=== PATIENT | female | born 1990 | race Caucasian/White ===

== ENCOUNTER 2017-05-01 12:00 | Outpatient (CLI) | payer BC, MEDICAID, SELFPAY ==
[2017-05-01 12:21] VITALS: BMI 37.6
[2017-05-01 12:50] LABS: ROM Internal Control Test YES-OK TO RESULT pt. (Internal QC); ROM Patient Test Negative (Negative)
--- NOTE | 2017-05-02 11:56 | OB.TRI.NOTE ---
History of Present Illness Date of Service: 05/01/17 Was patient seen by the physician?: No Reason For Visit: SROM Date of Service: 05/01/17 Final DIANNE: 05/15/17 Final DIANNE Source: US <20 weeks Gestational age: 38 Weeks and 1 Days History of Present Illness: 38+ week intrauterine presents with possible rupture of membranes. Home Medications Medication Instructions Recorded Citalopram [Celexa] 40 mg PO DAILY 04/11/17 Ferrous Sulfate 325 mg PO DAILY 04/11/17 Levothyroxine [Synthroid] 1.5 tab PO SUMOWEFR 04/11/17 Levothyroxine [Synthroid] 125 mcg PO TUTHSA 04/11/17 Allergies No Known Allergies Allergy (Verified 04/14/17 03:58) NST - FHR Rate Baby A NST Reactive:: Yes Impression/Plan 38+ week intrauterine presents with possible rupture of membranes. ROM plus test was negative. No contractions were noted and nonstress test was reactive. Will release to home with routine instructions.
== END 2017-05-01 13:00 | disposition home or self-care (01) ==
LOC: WPOUT 12:17 → WP 12:21
PROVIDERS: Visit Provider Obstetrics & Gynecology
DX: Z34.83 Encounter for supervision of other normal pregnancy, third trimester (principal); Z3A.00 Weeks of gestation of pregnancy not specified
CPT/HCPCS: 59025; 59050; 84112; 99218; G0378

== ENCOUNTER 2017-05-03 22:40 | Outpatient (CLI) | payer BC, MEDICAID, SELFPAY ==
[2017-05-03 23:05] VITALS: BMI 37.9
--- NOTE | 2017-05-05 09:17 | OB.TRI.NOTE ---
History of Present Illness Date of Service: 05/01/17 Was patient seen by the physician?: No Reason For Visit: DFM Date of Service: 05/01/17 Final DIANNE: 05/15/17 Final DIANNE Source: US <20 weeks Gestational age: 38 Weeks and 4 Days Home Medications Medication Instructions Recorded Citalopram [Celexa] 40 mg PO DAILY 04/11/17 Ferrous Sulfate 325 mg PO DAILY 04/11/17 Levothyroxine [Synthroid] 1.5 tab PO SUMOWEFR 04/11/17 Levothyroxine [Synthroid] 125 mcg PO TUTHSA 04/11/17 Allergies No Known Allergies Allergy (Verified 05/03/17 23:06) - Pertinent Past Medical History Pertinent Past Medical History: 38+ week intrauterine presents with decrease in movement. This despite interventions at home. She denies any contractions. Denies leaking of fluid or vaginal bleeding. NST - FHR Rate Baby A NST Reactive:: Yes Impression/Plan 38+ week intrauterine with decreased movement. Nonstress test was reactive. Will release to home with routine follow-up.
== END 2017-05-04 00:30 | disposition home or self-care (01) ==
LOC: WPOUT 22:45 → WP 22:48
PROVIDERS: Visit Provider Obstetrics & Gynecology
DX: O36.8130 Decreased fetal movements, third trimester, not applicable or unspecified (principal); Z3A.38 38 weeks gestation of pregnancy
CPT/HCPCS: 59025; 59050; 99218; G0378

== ENCOUNTER 2017-05-11 09:20 | Inpatient (IN) | payer BC, MEDICAID, SELFPAY ==
[2017-05-06 13:21] VITALS: BMI 38.1
[2017-05-11] VITALS (16 sets, daily range): BP systolic 103–134; BP diastolic 63–88; PULSE 68–102; RESP 12–20; TEMP 36.2–36.8; O2SAT 96–99
[2017-05-11 10:49] LABS: Absolute Lymphocyte Count 1.54 X10^3/ul (0.83-4.51); Absolute Neutrophil Count 6.9 X10^3/uL (2.0-7.7); Basophil# 0.02 X10^3/uL; Basophil% 0.2 % (0-1); Eosinophil# 0.14 X10^3/uL; Eosinophils% 1.5 % (0-5); Hematocrit 33.6 % (37-47); Lymphocyte # 1.54 X10^3/ul (4.0); Lymphocyte % 16.4 % (19-41); Mean Corp Hgb Conc 32.7 g/gl (32-36); Mean Corpuscular Hgb 30.1 pg (27.0-32.0); Mean Corpuscular Volume 91.8 fL (81-99); Mean Platelet Vol. 9.9 fl (6.2-12.0); Monocyte# 0.74 X10^3/uL; Monocyte% 7.9 % (0-10); Neutrophil # 6.88 X10^3/uL (2.7-7.7); Neutrophil % 73.3 % (47-70); Platelet Count 176 K/mm3 (150-450); RBC Distribution Width CV 13.6 % (11.6-14.6); RBC Distribution Width SD 43.2 fl (35.1-43.9); Red Blood Count 3.66 M/mm3 (4.2-5.4); White Blood Count 9.4 K/mm3 (4.4-11.0)
[2017-05-11 10:51] LABS: POSITIVE COUNT NO; POSITIVE DIFFERENTIAL NO; POSITIVE MORPHOLOGY NO
[2017-05-11] MEDS: Lactated Ringers 1,000 ML 999 ML IV (11:01)
[2017-05-11 11:07] LABS: Prothrombin Time (Protime)PT. 13.2 SECONDS (11.7-14.9)
[2017-05-11 11:08] LABS: Partial Thromboplast Time 28.1 Seconds (24.1-36.2)
[2017-05-11] MEDS: Lactated Ringers 1,000 ML 150 ML IV (11:32)
[2017-05-11] MEDS: Sodium Citrate/Citric Acid 30 ML UDC PO (11:53)
[2017-05-11] MEDS: Cefazolin 2 GM in 0.9% Normal Saline 100 ML IV (12:01)
[2017-05-11] MEDS: Oxytocin 30 units/NS 500 ml 30 UNITS/500 ML IV.SOLN 167 UNITS IV (12:23)
[2017-05-11] MEDS: Lactated Ringers 1,000 ML 100 ML IV (13:05)
[2017-05-11] MEDS: DiphenhydrAMINE 25 MG Capsule PO (16:09)
[2017-05-11] MEDS: Ketorolac 30 MG/ML Syringe IV (18:06)
--- NOTE | 2017-05-11 19:09 | PCM.OP.BLANK ---
Operative Report Date of Procedure: 05/11/17 PROCEDURE: Repeat C section 39 wk EGA Bilateral tubal occlusion, Filshie clips Preoperative diagnosis: 39 wk EGA prior C/S Planned repeat C section Sterilization request Postop diagnosis: 39 wk EGA prior C/S Planned repeat C section Sterilization request Anesthesia: Spinal per Tavares Mccoy CRNA Surgeon: Jolene Juárez MD Draughtsman: MEHRAN Sutton EBL 800 cc Complications: none Drains: Power draining clear yellow urine Fluids: replacement LR Findings: At amniotomy, clear fluid was noted. Abraham viable male in vertex presentation. Apgars 7/8, Baby weight: 8# 9 oz. Cord around the neck reduced at delivery. There was a normal appearing uterus, fallopian tubes and ovaries bilaterally. Adhesions noted at anterior lower uterine segment . Adhesions noted at R fallopian tube, with small segment of fallopian tube free of adhesions and varicose veins also noted. BPS not performed, in favor of Filshie clip BTO instead. PATH: Cord gases. Narrative account: After the risks, benefits and alternatives of the procedure were reviewed with the patient, informed consent was obtained. The patient was taken to the Operating room with an IV running. She was placed in a seated position on the operating room table and a Spinal was administered. The patient was the repositioned to the dorsal supine position with leftward displacement of the uterus , briefly frog-legged for placement of the Power catheter under sterile technique, and then repositioned again to dorsal supine position with leftward displacement of the uterus, and prepped and draped in the usual sterile fashion. Once the spinal was deemed adequate, a Pfannenstiel skin incision was created using the knife . The incision was carried down to the rectus fascia using the knife. The fascia was nicked in the midline. The fascial incision was extended bilaterally using curved Ferraro scissors. The superior aspect of the fascial incision was grasped with Scott clamps and tented up and the underlying rectus abdominal muscles were dissected free. In a similar manner, the inferior aspect of the facial incision was grasped with Scott clamps tented up and the underlying rectus abdominal muscles were dissected free. The rectus abdominis muscles were widely . The rectus abdominis muscles were tented up in the midline with camron clamps and the peritoneum was identified and entered by sharp dissection. The operators fingertips were then used to help develop the midline dissection of the rectus muscles and peritoneum. The rectus abdominis muscles and peritoneal incision was then extended inferiorly and superiorly using Ferarro scissors. Blunt dissection with the bush hog operator's fingertips was also used to take down the filmy adhesions between the peritoneum and anterior lower uterine segment. The peritoneum was stretched laterally and a bladder blade was inserted. A bladder flap was created with Metzenbaum scissors and the bladder blade was removed and reinserted. The uterine incision was then created using Metzenbaum scissors. The uterine incision was extended by blunt dissection in a caudad- cephalad orientation using the bush hog operator's fingertips. Clear fluid was noted at amniotomy. The Vertex was then delivered and a nuchal cord x one was noted and reduced and the shoulders delivered. The OP and nares were bulb suctioned on the abdomen. The cord was clamped x two and cut and the baby was shown briefly to his parents and then passed off to the nurse awaiting delivery. The baby had good tone but was not crying vigorously. The umbilical cord was doubly clamped. The placenta was then delivered and set aside for later collection of cord blood gases. The uterus was exteriorized and cleared of clots and debris . The cervix was dilated with a ring forceps which was then passed off the field. The uterine incision was repaired with 1 Vicryl in a running locked fashion. The fallopian tubes were then inspected. The R fallopian tube was adherent to the R ovary and a small portion only of fallopian tube was free and accessible for BTO vs BPS. Due to this finding, I advised BTO with Filshie clips and advised Judith of this. The R fallopian tube was tented up at the small portion not involved in adhesions and the Filshie clip was firmly applied. Good blanching effect was noted. The L fallopian tube was then tented up at a relatively avascular portion and a Filshie clip was firmly applied. Good blanching effect was noted. The uterus, fallopian tubes and ovaries were then inspected and returned to the abdominal cavity. The gutters were cleared of clots and debris. The uterine incision and fallopian tubes were again inspected. There was minimal bleeding noted along the incision. Several horizontal mattress stitches of 1 Vicryl were placed and excellent hemostasis was then noted. The rectus abdominis and peritoneal edges were reapproximated in the midline with interrupted vertical mattress stitches of 1 Vicryl . Excellent hemostasis was noted at the subfascial space The fascia was closed in a running nonlocked fashion with 1 Vicryl. The Subcutaneous fatty tissue was Bovie cauterized as needed for hemostasis. This layer was then reapproximated with a nonlocked running 3-0 Vicryl. The skin edges were closed in a Subcuticular stitch of 4-0 Monocryl. The incision was cleansed. Seri-strips, and a sterile dressing were applied. The patient was then transferred to the recovery room bed in stable condition after tolerating the procedure well. Sponge, lap, needle and instrument counts correct times two. Medications given preop and intraoperatively included: Ancef two grams IV was given general hardware salesperson to the operating room. The patient also received Pitocin given IV after cord clamp, and Toradol 30 mg IV after cord clamp. For a complete listing of medications given preop and intraoperatively, please see the anesthesia record.
--- NOTE | 2017-05-11 19:22 | OP.PCM_ITS ---
Operative Report Date of Procedure: 05/11/17 PROCEDURE: Repeat C section 39 wk EGA Bilateral tubal occlusion, Filshie clips Preoperative diagnosis: 39 wk EGA prior C/S Planned repeat C section Sterilization request Postop diagnosis: 39 wk EGA prior C/S Planned repeat C section Sterilization request Anesthesia: Spinal per Tavares Mccoy CRNA Surgeon: Jolene Juárez MD Police Shift Commander: MEHRAN Sutton EBL 800 cc Complications: none Drains: Power draining clear yellow urine Fluids: replacement LR Findings: At amniotomy, clear fluid was noted. Abraham viable male in vertex presentation. Apgars 7/8, Baby weight: 8# 9 oz. Cord around the neck reduced at delivery. There was a normal appearing uterus, fallopian tubes and ovaries bilaterally. Adhesions noted at anterior lower uterine segment . Adhesions noted at R fallopian tube, with small segment of fallopian tube free of adhesions and varicose veins also noted. BPS not performed, in favor of Filshie clip BTO instead. PATH: Cord gases. Narrative account: After the risks, benefits and alternatives of the procedure were reviewed with the patient, informed consent was obtained. The patient was taken to the Operating room with an IV running. She was placed in a seated position on the operating room table and a Spinal was administered. The patient was the repositioned to the dorsal supine position with leftward displacement of the uterus , briefly frog-legged for placement of the Power catheter under sterile technique, and then repositioned again to dorsal supine position with leftward displacement of the uterus, and prepped and draped in the usual sterile fashion. Once the spinal was deemed adequate, a Pfannenstiel skin incision was created using the knife . The incision was carried down to the rectus fascia using the knife. The fascia was nicked in the midline. The fascial incision was extended bilaterally using curved Ferraro scissors. The superior aspect of the fascial incision was grasped with Scott clamps and tented up and the underlying rectus abdominal muscles were dissected free. In a similar manner, the inferior aspect of the facial incision was grasped with Scott clamps tented up and the underlying rectus abdominal muscles were dissected free. The rectus abdominis muscles were widely . The rectus abdominis muscles were tented up in the midline with camron clamps and the peritoneum was identified and entered by sharp dissection. The operators fingertips were then used to help develop the midline dissection of the rectus muscles and peritoneum. The rectus abdominis muscles and peritoneal incision was then extended inferiorly and superiorly using Ferraro scissors. Blunt dissection with the wire photo operator news's fingertips was also used to take down the filmy adhesions between the peritoneum and anterior lower uterine segment. The peritoneum was stretched laterally and a bladder blade was inserted. A bladder flap was created with Metzenbaum scissors and the bladder blade was removed and reinserted. The uterine incision was then created using Metzenbaum scissors. The uterine incision was extended by blunt dissection in a caudad- cephalad orientation using the wire photo operator news's fingertips. Clear fluid was noted at amniotomy. The Vertex was then delivered and a nuchal cord x one was noted and reduced and the shoulders delivered. The OP and nares were bulb suctioned on the abdomen. The cord was clamped x two and cut and the baby was shown briefly to his parents and then passed off to the nurse awaiting delivery. The baby had good tone but was not crying vigorously. The umbilical cord was doubly clamped. The placenta was then delivered and set aside for later collection of cord blood gases. The uterus was exteriorized and cleared of clots and debris . The cervix was dilated with a ring forceps which was then passed off the field. The uterine incision was repaired with 1 Vicryl in a running locked fashion. The fallopian tubes were then inspected. The R fallopian tube was adherent to the R ovary and a small portion only of fallopian tube was free and accessible for BTO vs BPS. Due to this finding, I advised BTO with Filshie clips and advised Judith of this. The R fallopian tube was tented up at the small portion not involved in adhesions and the Filshie clip was firmly applied. Good blanching effect was noted. The L fallopian tube was then tented up at a relatively avascular portion and a Filshie clip was firmly applied. Good blanching effect was noted. The uterus, fallopian tubes and ovaries were then inspected and returned to the abdominal cavity. The gutters were cleared of clots and debris. The uterine incision and fallopian tubes were again inspected. There was minimal bleeding noted along the incision. Several horizontal mattress stitches of 1 Vicryl were placed and excellent hemostasis was then noted. The rectus abdominis and peritoneal edges were reapproximated in the midline with interrupted vertical mattress stitches of 1 Vicryl . Excellent hemostasis was noted at the subfascial space The fascia was closed in a running nonlocked fashion with 1 Vicryl. The Subcutaneous fatty tissue was Bovie cauterized as needed for hemostasis. This layer was then reapproximated with a nonlocked running 3-0 Vicryl. The skin edges were closed in a Subcuticular stitch of 4-0 Monocryl. The incision was cleansed. Seri-strips , and a sterile dressing were applied. The patient was then transferred to the recovery room bed in stable condition after tolerating the procedure well. Sponge, lap, needle and instrument counts correct times two. Medications given preop and intraoperatively included: Ancef two grams IV was given astronomy teacher to the operating room. The patient also received Pitocin given IV after cord clamp, and Toradol 30 mg IV after cord clamp. For a complete listing of medications given preop and intraoperatively, please see the anesthesia record.
[2017-05-11] MEDS: Lactated Ringers 500 ML IV (21:57)
[2017-05-12] VITALS (10 sets, daily range): BP systolic 101–126; BP diastolic 62–79; PULSE 78–104; RESP 16–18; TEMP 36.6–37.3; O2SAT 98–100
[2017-05-12] MEDS: Ketorolac 30 MG/ML Syringe IV ×2 (00:03→06:00)
[2017-05-12] MEDS: Lactated Ringers 1,000 ML 100 ML IV (03:35)
[2017-05-12 04:59] LABS: Hemoglobin 9.5 g/dl (12.0-15.0); Mean Corp Hgb Conc 32.8 g/gl (32-36); Mean Corpuscular Hgb 30.2 pg (27.0-32.0); Mean Corpuscular Volume 92.1 fL (81-99); Mean Platelet Vol. 9.6 fl (6.2-12.0); Platelet Count 136 K/mm3 (150-450); RBC Distribution Width CV 13.6 % (11.6-14.6); RBC Distribution Width SD 44.7 fl (35.1-43.9); Red Blood Count 3.15 M/mm3 (4.2-5.4); White Blood Count 9.4 K/mm3 (4.4-11.0)
[2017-05-12 05:03] LABS: Scan Indicated on CBC? Y/N NO
--- NOTE | 2017-05-12 05:23 | PCM.DCCSEC ---
Discharge Diet: No Restrictions Discharge Activity: May not drive while taking narcotic pain medications., May Shower, May Take a Tub Bath May resume sexual activity in: 4-6 weeks Lifting Restrictions: 20 pounds Additional Activity Instructions:: Nothing in the vagina for 4-6 weeks. You may return to work/school in 6 weeks. Change Dressing in (Days):: 14 Remove Dressing in (days):: 14 Cleanse incision/area with: Soap & Water, Keep Dressing Clean & Dry Additional Instructions: If you experience any of the following, contact your healthcare provider. Bleeding that soaks a pad every hour for 2 hours Fever 100.4 or higher Unrelieved incision or abdominal pain Swelling, redness, discharge or bleeding from your incision Problems urinating (including inability to urinate or burning while urinating). Visual changes Severe headache Flu-like symptoms Pain or redness in one of both of your breasts Pain, warmth, tenderness or swelling in your legs, especially the calf area Frequent nausea and vomiting Symptoms of depression or anxiety If you experience any of the following, call 911 or go to the nearest Emergency Room. Chest pain Problems breathing Seizure activity Partial or complete paralysis of a body part, slurred speech, weakness or drooping of the face, or a sudden inability to walk or hold your balance Allergies/Adverse Reactions: Allergies No Known Allergies Allergy (Verified 05/11/17 10:47) Medications to take at Discharge Citalopram [Celexa] 40 mg PO DAILY 04/11/17 Levothyroxine [Synthroid] 1.5 tab PO SUMOWEFR 04/11/17 Levothyroxine [Synthroid] 125 mcg PO TUTHSA 04/11/17 Acetaminophen [Tylenol] 1,000 mg PO Q8H PRN tablet 05/12/17 Ferrous Sulfate 325 mg PO BIDCM tablet 05/12/17 Naproxen [Naprosyn] 250 - 500 mg PO Q8H PRN PRN #30 tab 05/12/17 Oxycodone [Oxyir] 5 - 10 mg PO Q6H PRN PRN 7 Days #28 tablet 05/12/17 Senna/Docusate Sodium [Senokot-S] 1 tab PO BID PRN #30 tab 05/12/17 The following prescriptions were given: Oxycodone [Oxyir] 5 - 10 mg PO Q6H PRN PRN 7 Days #28 tablet PRN Reason: Mod-Severe Pain (4-10) Naproxen [Naprosyn] 250 - 500 mg PO Q8H PRN PRN #30 tab PRN Reason: Mild Pain (1-3) Senna/Docusate Sodium [Senokot-S] 1 tab PO BID PRN #30 tab PRN Reason: Constipation Orders to be completed after discharge: Electric breast pump Time Frame: 1 Year, Location: None Selected Follow-Up: Call to make an appointment with your doctor for an incision check in 1-2 weeks. You will also need a 6 week post- follow up appointment. Please Follow Up With: Jolene Juárez MD - [phone] When: Call to make an appointment for an incision check in 2 weeks. Primary Care Physician: Care Physician,No Primary [Primary Care Provider] -
--- NOTE | 2017-05-12 05:30 | DCINST_ITS ---
Discharge Diet: No Restrictions Discharge Activity: May not drive while taking narcotic pain medications., May Shower, May Take a Tub Bath May resume sexual activity in: 4-6 weeks Lifting Restrictions: 20 pounds Additional Activity Instructions:: Nothing in the vagina for 4-6 weeks. You may return to work/school in 6 weeks. Change Dressing in (Days):: 14 Remove Dressing in (days):: 14 Cleanse incision/area with: Soap & Water, Keep Dressing Clean & Dry Additional Instructions: If you experience any of the following, contact your healthcare provider. * Bleeding that soaks a pad every hour for 2 hours * Fever 100.4 or higher * Unrelieved incision or abdominal pain * Swelling, redness, discharge or bleeding from your incision * Problems urinating (including inability to urinate or burning while urinating) . * Visual changes * Severe headache * Flu-like symptoms * Pain or redness in one of both of your breasts * Pain, warmth, tenderness or swelling in your legs, especially the calf area * Frequent nausea and vomiting * Symptoms of depression or anxiety If you experience any of the following, call 911 or go to the nearest Emergency Room. * Chest pain * Problems breathing * Seizure activity * Partial or complete paralysis of a body part, slurred speech, weakness or drooping of the face, or a sudden inability to walk or hold your balance Allergies/Adverse Reactions: Allergies No Known Allergies Allergy (Verified 05/11/17 10:47) Medications to take at Discharge Citalopram [Celexa] 40 mg PO DAILY 04/11/17 Levothyroxine [Synthroid] 1.5 tab PO SUMOWEFR 04/11/17 Levothyroxine [Synthroid] 125 mcg PO TUTHSA 04/11/17 Acetaminophen [Tylenol] 1,000 mg PO Q8H PRN tablet 05/12/17 Ferrous Sulfate 325 mg PO BIDCM tablet 05/12/17 Naproxen [Naprosyn] 250 - 500 mg PO Q8H PRN PRN #30 tab 05/12/17 Oxycodone [Oxyir] 5 - 10 mg PO Q6H PRN PRN 7 Days #28 tablet 05/12/17 Senna/Docusate Sodium [Senokot-S] 1 tab PO BID PRN #30 tab 05/12/17 The following prescriptions were given: Oxycodone [Oxyir] 5 - 10 mg PO Q6H PRN PRN 7 Days #28 tablet PRN Reason: Mod-Severe Pain (4-12/29) Naproxen [Naprosyn] 250 - 500 mg PO Q8H PRN PRN #30 tab PRN Reason: Mild Pain (1-3) Senna/Docusate Sodium [Senokot-S] 1 tab PO BID PRN #30 tab PRN Reason: Constipation Orders to be completed after discharge: Electric breast pump Time Frame: 1 Year, Location: None Selected Follow-Up: Call to make an appointment with your doctor for an incision check in 1-2 weeks. You will also need a 6 week post- follow up appointment. Please Follow Up With: Jolene Juárez MD - [phone] When: Call to make an appointment for an incision check in 2 weeks. Primary Care Physician: Care Physician,No Primary [Primary Care Provider] -
[2017-05-12] MEDS: Levothyroxine 125 MCG Tablet 187.5 MCG PO (05:59)
--- NOTE | 2017-05-12 06:51 | PN.OBGYN_ITS ---
Subjective: POD#1 repeat C/S and BTO Doing OK. Up and to bathroom , would like to get the lucio out RAJAT. States itching all over. Offered med for this and not sure she wants it as threw up after med given yesterday (per RN: vomited after drinking entire pitcher of water and benadryl given) Pain control adequate. would like a shower. Planning to breast and bottle feed. Was going to only bottle feed, but baby is nursing very well. Objective: walking around in room with IV pole and Lucio bag in hand. - Physical Exam General: Alert, Oriented x3, Cooperative, No apparent distress HEENT: Atraumatic Neck: Supple Abdomen: Soft - Fundus firm NT at approx 2 cm inferior to umbilicus Skin: Incision - Dressing appears CDI. Neurological: Cranial nerves II-XII grossly intact Psych/Mental Status: Normal Affect Vital Signs Temp Pulse Resp BP Pulse Ox 98.7 F 87 18 101/62 98 05/12/17 03:36 05/12/17 03:36 05/12/17 05:30 05/12/17 03:36 05/12/17 05:30 Oxygen Delivery Method Room Air Weight: 103.9 kg Body Mass Index (BMI) 38.1 Intake and Output for Last 24 Hours 05/10/17 05/11/17 05/12/17 23:59 23:59 23:59 Intake Total 3296 / 3296 Output Total 1588 / 1588 Balance 1708 / 1708 Laboratory Tests Past 24 Hrs 05/11/17 05/11/17 05/11/17 10:20 10:20 10:20 WBC 9.4 RBC 3.66 L Hgb 11.0 L Hct 33.6 L MCV 91.8 MCH 30.1 MCHC 32.7 RDW 13.6 RDW Differential 43.2 Plt Count 176 MPV 9.9 Immature Gran % (Auto) 0.700 Neut % (Auto) 73.3 H Lymph % (Auto) 16.4 L Denali % (Auto) 7.9 Eos % (Auto) 1.5 Baso % (Auto) 0.2 Absolute Neuts (auto) 6.9 Absolute Lymphs (auto) 1.54 Total Counted Not Reportable PT 13.2 INR 1.0 APTT 28.1 Blood Type A POSITIVE Antibody Screen NEGATIVE 05/12/17 04:30 WBC 9.4 RBC 3.15 L Hgb 9.5 L Hct 29.0 L MCV 92.1 MCH 30.2 MCHC 32.8 RDW 13.6 RDW Differential 44.7 H Plt Count 136 L MPV 9.6 Immature Gran % (Auto) Neut % (Auto) Lymph % (Auto) Denali % (Auto) Eos % (Auto) Baso % (Auto) Absolute Neuts (auto) Absolute Lymphs (auto) Total Counted PT INR APTT Blood Type Antibody Screen Assessment/Plan POD#1 Repeat C/S and BTO Stable postop. D/C Lucio for voiding trial. S/L IV for continued toradol. Inc diet and activity as tolerated. Pt is a smoker and eager to go outside. Postop acute blood loss anemia on superimposed anemia of Iron supplement BID. Continue care.
[2017-05-12] MEDS: Senna/Docusate Sodium 1 Tablet PO (08:45)
[2017-05-12] MEDS: Ferrous Sulfate 325 MG Tablet PO ×3 (11:07→16:55)
[2017-05-12] MEDS: Citalopram 40 MG TABLET PO (11:07)
--- NOTE | 2017-05-12 15:24 | NURSING ---
1440 Mom called me into room for questions with . Encouraged Mom to call for assistance and to let us know if she would like a consult following delivery. Jayesh DEGROOT
[2017-05-12] MEDS: Ibuprofen 600 MG Tablet PO ×2 (16:55→23:09)
[2017-05-13 01:46] VITALS: BP 105/63; PULSE 96; RESP 16; TEMP 36.7; O2SAT 97
[2017-05-13] MEDS: Levothyroxine 125 MCG Tablet PO (06:30)
--- NOTE | 2017-05-13 07:02 | PCM.PN.OB ---
Subjective: PPD#2 Repeat C/S and BTO Doing well and would like to go home today. Pain control OK. Breast and bottle feeding, ultimately plans to bottle feed. No concerns voiced. Up to shower and lucio out yesterday. Out to smoke also yesterday. Objective: A and O, sitting up in bed holding sleeping baby - Physical Exam General: Alert, Oriented x3, Cooperative, No apparent distress HEENT: Atraumatic Neck: Supple Abdomen: Soft - Fundus at 2-3 cm inferior to umbilicus Skin: Incision - CDI. Steristrips in place. Ecchymosis noted superior to incision, at approx level of the dressing applied earlier. Neurological: Cranial nerves II-XII grossly intact Psych/Mental Status: Normal Affect Vital Signs Temp Pulse Resp BP Pulse Ox 98.1 F 96 16 105/63 97 05/13/17 01:46 05/13/17 01:46 05/13/17 01:46 05/13/17 01:46 05/13/17 01:46 Oxygen Delivery Method Room Air Weight: 103.9 kg Body Mass Index (BMI) 38.1 Intake and Output for Last 24 Hours 05/11/09 05/05/13/17 23:59 23:59 23:59 Intake Total 3296 / 3296 323 / 323 Output Total 1588 / 1588 1700 / 1700 Balance 1708 / 1708 -1377 / -1377 Assessment/Plan POD#2 Repeat C/S and BTO Stable postop. D/C home today. RTO in 2 wk for postop check.
--- NOTE | 2017-05-13 07:05 | PCM.DC.SUM ---
Discharge Date and Diagnosis Date of Admission: 05/11/17 - 39+ wk Date of Discharge: 05/13/17 Hospital Course and Treatment Operations: - - Repeat C/S and VIVIANAOradha clips Summary of Care Provided: The patient is a 26 year old female with h/o prior C sections times two. Presents at 39+ wk for repeat C section and bilateral tubal ligation. Admitted to hospital. Procedure performed without incident. course uneventful. Postop acute blood loss anemia superimposed on anemia of . Discharged home on POD#2 per pt request. Discharge Diet: No Restrictions Discharge Activity: May not drive while taking narcotic pain medications., May Shower, May Take a Tub Bath May resume sexual activity in: 4-6 weeks Additional Activity Instructions:: Nothing in the vagina for 4-6 weeks. You may return to work/school in 6 weeks. Change Dressing in (Days):: 14 Remove Dressing in (days):: 14 Cleanse incision/area with: Soap & Water, Keep Dressing Clean & Dry Home Medications: Medications to take at Discharge Citalopram [Celexa] 40 mg PO DAILY 04/11/17 Levothyroxine [Synthroid] 1.5 tab PO SUMOWEFR 04/11/17 Levothyroxine [Synthroid] 125 mcg PO TUTHSA 04/11/17 Acetaminophen [Tylenol] 1,000 mg PO Q8H PRN tablet 05/12/17 Ferrous Sulfate 325 mg PO BIDCM tablet 05/12/17 Naproxen [Naprosyn] 250 - 500 mg PO Q8H PRN PRN #30 tab 05/12/17 Oxycodone [Oxyir] 5 - 10 mg PO Q6H PRN PRN 7 Days #28 tablet 05/12/17 Senna/Docusate Sodium [Senokot-S] 1 tab PO BID PRN #30 tab 05/12/17 Following Prescrptions Were Given to Patient: Oxycodone [Oxyir] 5 - 10 mg PO Q6H PRN PRN 7 Days #28 tablet PRN Reason: Mod-Severe Pain (4-10/10) Naproxen [Naprosyn] 250 - 500 mg PO Q8H PRN PRN #30 tab PRN Reason: Mild Pain (1-3/10) Senna/Docusate Sodium [Senokot-S] 1 tab PO BID PRN #30 tab PRN Reason: Constipation Other Amb Orders: Electric breast pump Time Frame: 1 Year, Location: None Selected Primary Care Physician: Care Physician,No Primary [Primary Care Provider] - Please Follow Up With: Jolene Juárez MD - [phone] When: Call to make an appointment for an incision check in 2 weeks. Meaningful Use Info Meaningful Use Diagnoses (Choose all that apply): None applicable
[2017-05-13 08:30] VITALS: BP 132/87; PULSE 97; RESP 18; TEMP 36.7; O2SAT 97
[2017-05-13] MEDS: Acetaminophen 500 MG Tablet 1000 MG PO (08:46)
[2017-05-13] MEDS: Citalopram 40 MG TABLET PO (08:47)
[2017-05-13] MEDS: Ferrous Sulfate 325 MG Tablet PO (08:47)
[2017-05-13 13:00] VITALS: BP 125/84; PULSE 96; RESP 18; TEMP 36.5; O2SAT 97
--- NOTE | 2017-05-13 14:00 | NURSING ---
baby bands verified by nurse and mother. baby discharge sheet signed by mother
== END 2017-05-13 14:10 | disposition home or self-care (01) | DRG 765 ==
PROVIDERS: Admitting Provider Obstetrics & Gynecology; Visit Provider Obstetrics & Gynecology
DX: O34.219 Maternal care for unspecified type scar from previous cesarean delivery (principal); D62 Acute posthemorrhagic anemia; Z30.2 Encounter for sterilization; O99.02 Anemia complicating childbirth; O99.284 Endocrine, nutritional and metabolic diseases complicating childbirth; E05.00 Thyrotoxicosis with diffuse goiter without thyrotoxic crisis or storm; O69.81X0 Labor and delivery complicated by cord around neck, without compression, not applicable or unspecified; O99.334 Smoking (tobacco) complicating childbirth; Z79.899 Other long term (current) drug therapy; Z3A.39 39 weeks gestation of pregnancy; Z37.0 Single live birth
CPT/HCPCS: 85025; 85027; 85610; 85730; 86850; 86900; 99218; J7120; G0378; J2405

== ENCOUNTER 2017-05-22 11:45 | Outpatient (CLI) | payer BC, MEDICAID, SELFPAY | END 2017-05-22 12:45 | disposition home or self-care (01) | LOC: WPOUT 11:54 → WP 11:57 | PROVIDERS: Visit Provider Pediatrics | DX: R63.3 Feeding difficulties (principal) | CPT/HCPCS: 96152 ==

== ENCOUNTER → 2017-07-02 13:55 | Outpatient (CLI) | payer BC, MEDICAID, SELFPAY ==
[2017-07-02 15:25] LABS: Free T3 3.2 pg/mL (2.18-3.98); T4 Free Direct 1.72 ng/dL (0.76-1.46); Thyroid Stim Hormone (TSH) 0.01 uIU/mL (0.358-3.74)
== END ==
PROVIDERS: Visit Provider Nurse Practitioner
DX: E03.9 Hypothyroidism, unspecified (principal)
CPT/HCPCS: 36415; 84439; 84443; 84481

== ENCOUNTER → 2017-09-16 13:21 | Outpatient (CLI) | payer BC, SELFPAY ==
[2017-09-16 14:27] LABS: Free T3 2.8 pg/mL (2.18-3.98); T4 Free Direct 1.41 ng/dL (0.76-1.46); Thyroid Stim Hormone (TSH) 0.05 uIU/mL (0.358-3.74)
== END ==
PROVIDERS: Visit Provider Nurse Practitioner
DX: E07.9 Disorder of thyroid, unspecified (principal)
CPT/HCPCS: 36415; 84439; 84443; 84481

== ENCOUNTER → 2017-12-22 10:04 | Outpatient (CLI) | payer BC, SELFPAY ==
[2017-12-22 11:32] LABS: T4 Free Direct 1.45 ng/dL (0.76-1.46); Thyroid Stim Hormone (TSH) 0.08 uIU/mL (0.358-3.74)
== END ==
PROVIDERS: Referring Provider Nurse Practitioner; Visit Provider Nurse Practitioner
DX: E03.9 Hypothyroidism, unspecified (principal)
CPT/HCPCS: 36415; 84439; 84443; 84481

== ENCOUNTER → 2019-03-28 13:30 | Outpatient (CLI) | payer BC, SELFPAY ==
[2019-04-02 15:08] LABS: HPV APTIMA, High Risk Negative (Negative)
== END ==
PROVIDERS: Visit Provider Obstetrics & Gynecology
DX: Z12.4 Encounter for screening for malignant neoplasm of cervix (principal)
CPT/HCPCS: 87624; 88175; G0145

== ENCOUNTER → 2019-04-13 10:14 | Outpatient (CLI) | payer BC, SELFPAY ==
[2017-12-22 09:14] VITALS: BMI 34.4
[2019-04-13 14:08] LABS: Thyroid Stim Hormone (TSH) 0.56 uIU/mL (0.358-3.74)
== END ==
PROVIDERS: Referring Provider Obstetrics & Gynecology; Visit Provider Obstetrics & Gynecology
DX: E01.8 Other iodine-deficiency related thyroid disorders and allied conditions (principal); N92.1 Excessive and frequent menstruation with irregular cycle
CPT/HCPCS: 36415; 84443

== ENCOUNTER → 2019-04-19 09:22 | Outpatient (CLI) | payer BC, SELFPAY ==
[2017-12-22 09:14] VITALS: BMI 34.4
== END ==
PROVIDERS: Referring Provider Obstetrics & Gynecology; Visit Provider Obstetrics & Gynecology
DX: N92.0 Excessive and frequent menstruation with regular cycle (principal)

== ENCOUNTER → 2019-04-19 17:00 | Outpatient (CLI) | payer BC, SELFPAY ==
[2017-12-22 09:14] VITALS: BMI 34.4
--- NOTE | 2019-04-19 | EMB_PTH ---
PATIENT: LEAH GERMAN LOC: [facility] U#:[id number] AGE/SX: 34/F ROOM: RE04/19/[address]: Dr. Mik June MD : 1990 BED: DIS: SPEC #: [id number] RECD: 04/19/19 18:04 STATUS: DANIEL MARVIN #: [id number] MIGNON: 04/19/19 00:[address]: Mik June DEPT: SURGICAL PATHOLOGY RECD BY: Shashank Roche Tissues: Endometrium, NOS Procedures: Surgery Specimen Level IV HEADER OPERATION: Endometrial biopsy PRE-OP DIAGNOSIS: N92.0 TISSUE SUBMITTED: Endometrial biopsy MICROSCOPIC DIAGNOSIS Endometrial biopsy: Proliferative endometrium. SJ:brisa 04/21/19 MICROSCOPIC DESCRIPTION Slides are reviewed. GROSS DESCRIPTION Received in fixative is one container labeled with the patient's name and designated EM biopsy. The specimen consists of multiple fragments of hemorrhagic mucoid tissue that in aggregate measure 2.4 x 2 x 0.1 cm. The specimen is totally submitted in one cassette. / ANGELA:brisa 04/20/19 TC:4 CPT: 49202
== END ==
PROVIDERS: Visit Provider Obstetrics & Gynecology
DX: N92.0 Excessive and frequent menstruation with regular cycle (principal)
CPT/HCPCS: 88305

== ENCOUNTER 2019-05-22 09:27 | Day surgery (SDC) | payer BC, SELFPAY ==
[2017-12-22 09:14] VITALS: BMI 34.4
[2019-05-17 15:05] LABS: Hematocrit 40.7 % (37-47); Hemoglobin 13.3 g/dL (12.0-15.0); Mean Corp Hgb Conc 32.7 g/dL (32-36); Mean Corpuscular Hgb 28.7 pg (27.0-32.0); Mean Corpuscular Volume 87.9 fL (81-99); Platelet Count 237 K/mm3 (150-450); RBC Distribution Width CV 11.7 % (11.6-14.6); RBC Distribution Width SD 37.5 fl (35.1-43.9); Red Blood Count 4.63 M/mm3 (4.2-5.4); White Blood Count 5.1 K/mm3 (4.4-11.0)
[2019-05-17 15:13] LABS: Prothrombin Time (Protime)PT. 13.1 SECONDS (11.7-14.9)
[2019-05-17 15:14] LABS: Partial Thromboplast Time 27.4 Seconds (24.1-36.2)
--- NOTE | 2019-05-21 10:51 | HP.PCM_ITS ---
History and Physical Date of Admission: 05/22/19 Surgical History and Physical Judith Barnes, a 28 year old female 3 0 0 0 3, presents for hysteroscopy, D and C, HTA on May 22, 2019 at 7:30. -- Menorrhagia -- Excessive bleeding. Ultrasound reveals a thickened endometrial lining of 12.8 mm with fluid seen within and a retroverted uterus. Heavy and somewhat irregular menses for past 2 years. U/S shows no submucous fibroids or polyps and EMBx was benign. MEDICATIONS HISTORY: Current medications prescribed by our practice are: 1. citalopram 40 mg tablet, 1 po daily Patient is also takin. levothyroxine 125 mcg tablet, One pill by mouth once a day ALLERGIES: NKDA Infections - Chicken pox, [place] and Strep Throat at least 10 x Illnesses - hypothyroid and Grave's Disease Accidents - no injuries of consequence Hospitalizations - Childbirth Radiation Tx to Thyroid; Review of Systems: GENERAL - Denies fever, or chills SKIN - Denies skin changes EYES - Denies visual changes EARS - Denies difficulty hearing NOSE - Denies nasal congestion or bleeding MOUTH - Denies sore throat or difficulty swallowing NECK - Denies pain or swelling RESPIRATORY - Denies shortness of breath or wheezing CARDIOVASCULAR - Denies palpitations or chest pain GASTROINTESTINAL - Denies nausea, vomiting, diarrhea, constipation GENITOURINARY - Denies dysuria, frequency of urination, incontinence of urine MUSCULOSKELETAL - Denies joint or muscle pain NEUROLOGICAL - Denies localized numbness or weakness PSYCHIATRIC - Denies depression or anxiety ENDOCRINE - Denies heat or cold intolerance, weight loss or gain HEMATO-IMMUNOLOGIC - Denies excessive bleeding with cuts SOCIAL HISTORY: Alcohol Use - denies drinking Smoking - 1/2 pack/day--advised to quit Diet - moderate, balanced diet Lifestyle - moderate stress lifestyle and Exercise - none Seat Belt Use - always Employer - [employer] 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 Father: NO Contact--Health Hx Unknown. MENSTRUAL HISTORY: LMP Known?- Definite Amount/Duration - 7 days, Regularity - Irregular, Frequency - monthly days, LMP - 05/11/19, Age Onset Menarche - 12 PAST PREGNANCIES: Total Pregnancies - 3; Full Term Pregnancies - 3; Premature - 0; Abortions, Induced - 0; Abortions, Spontaneous - 0; Ectopics - 0; Multiple Births - 0; Living Children - 3 SURGICAL HISTORY: 1. 05/11/2017 Repeat /Tubal ; Jolene Juárez M.D. - 2. 07/07/2012 ; Sandy Rdz MD - 3. Radioactive Iodine Tx for Thyroid, age 16 ; Dr. Rivers - Grave's Disease 4. 12/20/2009 ; Sandy Rdz MD - [place], Prolonged ROM, CPD, FTP PHYSICAL EXAM BP- 112/74 Sitting, Right arm, regular cuff Weight- 210.74671 lbs Height- 65.5 inch BMI:34.49 CONSTITUTIONAL - NAD, well nourished, and well developed SKIN - No rash, lesions, or ulcers HEENT - Normocephalic, PERRLA, EOMI NECK - No nodes, no nuchal rigidity and thyroid normal size and texture LYMPH NODES - Palpation of lymph nodes in neck and groins within normal limits LUNGS - CTA x2 without wheezes, crackles or rales CARDIAC - Regular rate and rhythm without rubs, murmurs, or gallops BREAST - No dominant masses, no tenderness, no axillary adenopathy, no nipple discharge, no skin changes ABDOMEN - Without hepatosplenomegaly, distention, masses, rebound, or guarding; normal bowel sounds; no hernias EXTREMITIES - No edema or calf tenderness NEUROLOGICAL - Cranial nerves II-XII grossly intact PSYCHIATRIC - A and O to time, place, person, mood and affect PAP SMEAR - done External Genital Vagina - non-tender without lesions Urethra/Urethral Meatus - non-tender Bladder - non-tender Vagina - vaginal aleman are pink and moist without loss of rugae and no evidence of atropy Cervix - without cervical motion tenderness and has normal size and features without evident lesions Uterus - 6 cm in size, mobile and nontender Adnexa - clear without masses or tenderness ASSESSMENT/PLAN: Excessive And Frequent Menstruation Discussed OCP to regulate cycles and pt declines as she had tubal. U/S shows no polyps or submucosal fibroids. EMBx benign. TSH OK (had thyroid ablation on meds). Plan H/S, D and C and HTA. Discussed RBAs and all questions answered.
[2019-05-22] VITALS (9 sets, daily range): BP systolic 105–136; BP diastolic 63–96; PULSE 70–101; RESP 15–16; TEMP 36.3–37.3; O2SAT 94–100; BMI 34.5
--- NOTE | 2019-05-22 | EMB_PTH ---
PATIENT: LEAH GERMAN [place] [facility] [place][id number] AGE/SX: 28/F ROOM: RE05/22/[address]: Dr. Mik June MD : 1990 BED: DIS: 05/22/2019 SPEC #: [id number] RECD: 05/22/19 13:20 STATUS: DANIEL MARVIN #: [id number] MIGNON: 05/22/19 00:[address]: Mik June DEPT: SURGICAL PATHOLOGY RECD BY: Marcellus Aguilar ENTERED: 05/22/19 13:20 SP TYPE: ENDOM BX/C JOSH DR: No Primary Care Phys Tissues: Endometrium, NOS Procedures: Surgery Specimen Level IV HEADER OPERATION: Hysteroscopy, D & C, hydroablation PRE-OP DIAGNOSIS: Excessive and frequent menstruation TISSUE SUBMITTED: Endometrial curettings MICROSCOPIC DIAGNOSIS Endometrial curettings: Proliferative endometrium. See comment. SJ:brisa 05/23/19 COMMENT Please make reference to previous specimen ([id number]) endometrial biopsy with diagnosis of proliferative endometrium. MICROSCOPIC DESCRIPTION Slides are reviewed. GROSS DESCRIPTION Received in fixative is one container labeled with the patient's name and designated endometrial curettings. The specimen consists of multiple fragments of hemorrhagic soft tissue that in aggregate measure 3 x 2.5 x 0.3 cm. The specimen is totally submitted in one cassette. / SJ:brisa 05/22/19 TC:4 CPT: 30169
[2019-05-22 09:51] LABS: Internal QC Validated? YES +Cl - CLEAR BKGD; Pregnancy, Urine Negative Negative
[2019-05-22] MEDS: Lactated Ringers 1,000 ML 100 ML IV (10:01)
--- NOTE | 2019-05-22 11:00 | DCINST_ITS ---
Discharge Diet: No Restrictions Discharge Activity: Return to Normal Activity, May Shower, May Take a Tub Bath Call your doctor if you observe: Fever of 101 or Higher, Inability to urinate, Inability to have a bowel movement, Using more than one pad per hour Allergies/Adverse Reactions: Allergies No Known Allergies Allergy (Verified 05/22/19 09:42) Medications to take at Discharge Citalopram [Celexa] 40 mg PO DAILY 04/11/17 levothyroxine 125 mcg tablet 125 mcg PO DAILY #30 tab 12/22/17 Triamcinolone Acetonide [Nasacort] 1 spray NS DAILY 05/15/19 Oxycodone [Oxyir] 5 mg PO Q6H PRN PRN 7 Days #7 tab 05/22/19 The following prescriptions were given: Oxycodone [Oxyir] 5 mg PO Q6H PRN PRN 7 Days #7 tab PRN Reason: Pain Score 6-10/10 Transmission Status: Received by [facility]/pharmacy #[id number] Primary Care Physician: Care Physician,No Primary [Primary Care Provider] - Test Results: Test results from this visit will be discussed in further detail at your follow- up appointment, if applicable. Please Follow Up With: Mik June MD When: 3-4 weeks
--- NOTE | 2019-05-22 11:01 | PCM.OPRPT ---
Report of Operation Date of Procedure: 05/22/19 Pre-Operative Diagnosis: Menorrhagia Post-Operative Diagnosis: Menorrhagia Surgery/Procedure Performed:: Diagnostic Hysteroscopy, D&C, Hydrothermal Ablation Description of Surgical Findings:: 8 cm endometrial cavity without polyps or fibroids. Type of Anesthesia:: General - LMA Anesthesiologist: Anthony Marcano Specimen's removed: Endometrial curettings Estimated Blood Loss (mL): Minimal Fluids Replaced: Crystalloid Description of Procedure: Surgeon: Mik June MD, FACOG Indication: This is a 28 year old patient who has been having problems with extremely heavy menses. Conservative measures have not been helpful. Endometrial sampling was benign and pelvic ultrasound showed that ablation may be helpful. Pt has been counseled regarding the risks, benefits and alternatives of this procedure and all questions answered. She understands that only about half of patients will have amenorrhea after this procedure. Procedure: Patient taken to the operating room where after induction of general anesthesia the patient was prepped and draped in the usual sterile fashion. Bladder was drained of urine with a catheter. Anterior cervix grasped and cervix was dilated to about 17 Setswana size. Hysteroscopic hydrothermal ablation (HTA) unit was place in the cervix and the above findings were noted. HTA unit was removed and the uterus was gently curretted removing all contents. An HTA ablation cycle was then carried out at about 90 degrees Centigrade for 10 minutes with virtually no fluid loss during the procedure. After an appropriate cool down the HTA unit was removed with minimal bleeding noted. The patient tolerated the procedure well and was taken to the recovery room in satisfactory condition. Sponge, instruments and needle counts were all correct. There were no apparent complications of the surgery. Cefotan 2 gms IV was given prior to the procedure. Grafts/Implants Used: None - Complications None - Admit VTE Documentation VTE Present on Admission: Yes VTE Mechan Device Prophylaxis: SCD's
[2019-05-22] MEDS: Acetaminophen 500 MG Tablet 1000 MG PO (14:52)
== END 2019-05-22 15:20 | disposition home or self-care (01) ==
LOC: SDC 09:28 → AC 09:37
PROVIDERS: Anesthesiology; Referring Provider Obstetrics & Gynecology; Visit Provider Obstetrics & Gynecology
PROC: 0U5B8ZZ Destruction of Endometrium, Via Natural or Artificial Opening Endoscopic (ICD-10-PCS; CPT 58563; principal; 2019-05-22 10:40)
DX: N92.0 Excessive and frequent menstruation with regular cycle (principal); E05.00 Thyrotoxicosis with diffuse goiter without thyrotoxic crisis or storm; E03.9 Hypothyroidism, unspecified; F41.9 Anxiety disorder, unspecified; F17.200 Nicotine dependence, unspecified, uncomplicated; Z79.899 Other long term (current) drug therapy
CPT/HCPCS: 00952; 58563; 36415; 81025; 85027; 85610; 85730; 86850; 86900; 86901; 88305; J7120; J2405